=== PATIENT | female | born 1995 | race Two or more races ===

== ENCOUNTER 2024-12-28 17:14 | Emergency (ER) | payer OTHER ==
[~2024-12-28] VITALS: Ht 170.2 cm; Wt 68.9 kg
[2024-12-28] MEDS ORDERED: PRENATAL + DHA1 EAC1 PO (17:33)
[2024-12-28] MEDS ORDERED: LACTOBACILLUS ACIDOPHILUS 1 CAP CAP PO ONE ×2 (18:00→18:04)
[2024-12-28] MEDS ORDERED: 0.9 % SODIUM CHLORIDE 1,000 ML IV ONE (18:00)
[2024-12-28] MEDS ORDERED: ONDANSETRON HCL 2 MG/ML VIAL IV ONE (18:00)
[2024-12-28] MEDS ORDERED: FAMOTIDINE/PF 20 MG/2 ML VIAL IV ONE (18:00)
[2024-12-28] MEDS ORDERED: ONDANSETRON HCL 2 MG/ML VIAL ONE (18:04)
[2024-12-28] MEDS ORDERED: FAMOTIDINE/PF 20 MG/2 ML VIAL ONE (18:05)
[2024-12-28 18:58] LABS: BASO % 0.1 % (0.1-1.2); EOS # 0.12 (0.04-0.54); EOS % 1.3 % (0.7-7.0); LYMPH # 0.63 (1.18-3.74); LYMPH % 7.1 % (19.3-53.1); MEAN PLATELET VOLUME 12.10 fl (9.4-12.4); MONO # 0.33 (0.24-0.82); MONO % 3.7 % (4.7-12.5); NEUT # 7.78 (1.56-6.13); NEUT % 87.6 % (34.0-71.1); RED CELL DISTRIBUTION WIDTH 12.6 % (11.6-14.4)
[2024-12-28 19:29] LABS: ALT/SGPT 22.0 U/L (12-78); AST/SGOT 15.0 U/L (15-37); BILIRUBIN TOTAL 0.79 mg/dL (0.3-1.2); BUN CREA RATIO 21.0 (7.0-25.0); CREATININE SERUM 0.75 mg/dL (0.55-1.02); GFR 91.36; GLOBULINA 3.6 G/DL (2.4-3.5); GLUCOSE FASTING 101.0 mg/dL (65-100); OSMOLALITY SERUM 286.0 MOSM/KG (275-295)
[2024-12-28] MEDS ORDERED: ONDANSETRON ODT4 MG PO (19:55)
[2024-12-28] MEDS ORDERED: INTESTINEX680 M1 PO (19:55)
[2024-12-28] MEDS ORDERED: PEPCID AC20 MG PO (19:55)
[2024-12-28] MEDS ORDERED: ZITHROMAX500 MG PO (19:55)
== END 2024-12-28 20:16 ==
LOC: ER 17:14
PROVIDERS: General Practice
DX: K52.89 Other specified noninfective gastroenteritis and colitis (principal); Z88.6 Allergy status to analgesic agent; Z88.0 Allergy status to penicillin; Z88.8 Allergy status to other drugs, medicaments and biological substances